=== PATIENT | male | born 1960 | race Caucasian/White ===

== ENCOUNTER → 2017-12-01 | Outpatient (CLI) | payer BC ==
[~2017-12-01] MED LIST: CYCL10 PO; HYDACE5 PO; IBUP800 PO; LISI20 PO; NAPR500 PO; TRAM50 PO
== END | disposition home or self-care (01) ==
LOC: LAB SHORT 11:34 → PLD 11:34
DX: D04.62 Carcinoma in situ of skin of left upper limb, including shoulder (principal)
CPT/HCPCS: 88305

== ENCOUNTER 2017-12-29 06:08 | Day surgery (SDC) | payer BC ==
[~2017-12-29] VITALS: Ht 185.4 cm; Wt 109.1 kg
[2017-12-29] MEDS ORDERED: SERT100 (06:28)
[2017-12-29] MEDS ORDERED: ZESTORETIC 20-121 EA (07:19)
== END 2017-12-29 09:50 | disposition home or self-care (01) ==
LOC: ORSCSDS 06:08
PROVIDERS: Otolaryngology
PROC: 09BL7ZZ Excision of Nasal Turbinate, Via Natural or Artificial Opening (ICD-10-PCS; principal; 2017-12-29 07:30)
PROC: 09SM0ZZ Reposition Nasal Septum, Open Approach (ICD-10-PCS; principal; 2017-12-29 07:30)
DX: J34.2 Deviated nasal septum (principal); R13.14 Dysphagia, pharyngoesophageal phase; Z87.09 Personal history of other diseases of the respiratory system; J34.3 Hypertrophy of nasal turbinates; I10 Essential (primary) hypertension; Z87.891 Personal history of nicotine dependence; Z79.899 Other long term (current) drug therapy
CPT/HCPCS: J1100; J2250; J2370; J2405; J2710; J3010; J7120